=== PATIENT | male | born 1945 | race Caucasian/White ===

== ENCOUNTER 2023-04-04 10:17 | Outpatient (CLI) | payer MEDICARE | END 2023-04-04 10:18 | disposition home or self-care (01) | LOC: CSHMRI 10:17 | PROVIDERS: ATTEND Orthopaedic Surgery | DX: M23.91 Unspecified internal derangement of right knee (principal); S83.241A Other tear of medial meniscus, current injury, right knee, initial encounter; S83.281A Other tear of lateral meniscus, current injury, right knee, initial encounter; M84.461A Pathological fracture, right tibia, initial encounter for fracture; M25.461 Effusion, right knee; M65.9 Synovitis and tenosynovitis, unspecified; M94.8X6 Other specified disorders of cartilage, lower leg ==